=== PATIENT | female | born 1955 | race African-American/Black ===

== ENCOUNTER 2018-12-25 14:37 | Emergency (ER) | payer BC, MEDICARE ==
[~2018-12-25] VITALS: Ht 157.5 cm; Wt 76.0 kg
[~2018-12-25 14:37] MED LIST: ALBU6.7H INH; CLAR10 PO; MOME13HF2 INH; OMEP40CA34 PO; P20 PO
[2018-12-25] MEDS ORDERED: IPRATROPIUM BROMIDE (0.02%) 0.5MG/2.5ML NEB HHN STA (16:05)
[2018-12-25] MEDS ORDERED: METHYLPREDNISOLONE SOD SUCC 125 MG/2 ML VIAL IV STA (16:05)
[2018-12-25] MEDS ORDERED: ALBUTEROL (0.083%) 2.5MG/3ML NEB HHN STA (16:05)
[2018-12-25 16:38] LABS: CHLORIDE 110 mEq/L (98-107)
[2018-12-25 16:49] LABS: BASOPHILS % 1.4 % (0.0-2.0); EOSINOPHILS % 1.4 % (0.0-5.0); HEMATOCRIT. 44.5 % (36.0-48.0); HEMOGLOBIN. 15.2 g/dL (12.0-16.0); LYMPHOCYTES % 21.7 % (20.0-50.0); MEAN CORPUSCULAR HEMOGLOBIN 30.4 pg (28.0-32.0); MEAN CORPUSCULAR VOLUME 89.3 fL (81.0-99.0); MONOCYTES % 8.9 % (2.0-8.0); NEUTROPHILS % 66.6 % (40.0-76.0); PLATELET 340 x1000/uL (130-400); RED BLOOD CELL COUNT 4.98 mill/uL (4.2-5.4); RED CELL DISTRIBUTION WIDTH 14.3 % (11.6-14.6)
[2018-12-25 21:43] VITALS: BP 116/71
== END 2018-12-25 21:44 | disposition home or self-care (01) ==
LOC: ER 14:37
DX: J44.1 Chronic obstructive pulmonary disease with (acute) exacerbation (principal); Z87.891 Personal history of nicotine dependence; Z98.51 Tubal ligation status; Z90.10 Acquired absence of unspecified breast and nipple; Z96.659 Presence of unspecified artificial knee joint; Z88.8 Allergy status to other drugs, medicaments and biological substances; Z91.041 Radiographic dye allergy status
CPT/HCPCS: 36415; 71045; 78582; 80053; 83880; 84484; 85025; 85379; 93005; 94640; 96374; 99284; A9540; A9558; J2930; J7611

== ENCOUNTER 2019-03-20 14:03 | Emergency (ER) | payer MEDICARE ==
[~2019-03-20] VITALS: Ht 157.5 cm; Wt 78.0 kg
[2019-03-20 14:54] VITALS: BP 133/69
[2019-03-20] MEDS ORDERED: ALBUTEROL (0.083%) 2.5MG/3ML NEB HHN STA (18:26)
[2019-03-20] MEDS ORDERED: IPRATROPIUM BROMIDE (0.02%) 0.5MG/2.5ML NEB HHN STA (18:26)
[2019-03-20] MEDS ORDERED: METHYLPREDNISOLONE SOD SUCC 125 MG/2 ML VIAL IM NR (19:07)
== END 2019-03-20 20:16 | disposition home or self-care (01) ==
LOC: ER 14:03
DX: J44.1 Chronic obstructive pulmonary disease with (acute) exacerbation (principal); J20.9 Acute bronchitis, unspecified; J44.0 Chronic obstructive pulmonary disease with (acute) lower respiratory infection; Z91.041 Radiographic dye allergy status; Z90.10 Acquired absence of unspecified breast and nipple; Z98.51 Tubal ligation status
CPT/HCPCS: 71045; 94640; 96372; 99283; J2930; J7611

== ENCOUNTER 2022-08-22 16:54 | Emergency (ER) | payer MEDICARE, OTHER ==
[~2022-08-22] VITALS: Ht 157.5 cm; Wt 77.1 kg
[~2022-08-22 16:54] MED LIST changes: -ALBU6.7H INH; +ALBU6.7H15 INH; +MOME13HF12 INH; -MOME13HF2 INH; +OMEP40CA20 PO; -OMEP40CA34 PO
[2022-08-22 17:10] VITALS: BP 129/70
== END 2022-08-22 19:30 | disposition left against medical advice (07) ==
LOC: ER 16:54
DX: R51.9 Headache, unspecified (principal); R00.2 Palpitations
CPT/HCPCS: 99281

== ENCOUNTER 2023-05-13 23:23 | Emergency (ER) | payer OTHER ==
[~2023-05-13] VITALS: Ht 157.5 cm; Wt 77.0 kg
[2023-05-13 23:36] VITALS: O2SAT 99
[2023-05-14 02:57] VITALS: BP 123/89; PULSE 74; RESP 18; TEMP 98.1
== END 2023-05-14 02:58 | disposition home or self-care (01) ==
LOC: ER 23:23
DX: R42 Dizziness and giddiness (principal); R51.9 Headache, unspecified; J45.909 Unspecified asthma, uncomplicated; K21.9 Gastro-esophageal reflux disease without esophagitis; Z98.51 Tubal ligation status; Z79.899 Other long term (current) drug therapy
CPT/HCPCS: 99284

== ENCOUNTER 2023-12-01 08:57 | Emergency (ER) | payer OTHER ==
[~2023-12-01] VITALS: Ht 157.5 cm; Wt 77.1 kg
[2023-12-01 09:03] VITALS: O2SAT 100
[2023-12-01 09:31] LABS: BASOPHILS % 0.9 % (0.0-2.0); HEMATOCRIT. 39.4 % (36.0-48.0); HEMOGLOBIN. 13.2 g/dL (12.0-16.0); LYMPHOCYTES % 23.4 % (20.0-50.0); MEAN CORPUSCULAR HEMOGLOBIN 30.6 pg (28.0-32.0); MEAN CORPUSCULAR HGB CONC 33.6 g/dL (31.0-37.0); MEAN CORPUSCULAR VOLUME 91.2 fL (81.0-99.0); MONOCYTES % 9.3 % (2.0-8.0); NEUTROPHILS % 65.4 % (40.0-76.0); PLATELET 298 x1000/uL (130-400); RED BLOOD CELL COUNT 4.32 mill/uL (4.2-5.4); WHITE BLOOD COUNT 10.4 x1000/uL (4.5-11.0)
[2023-12-01 09:51] LABS: CARBON DIOXIDE 19 mEq/L (21-32); CHLORIDE 108 mEq/L (98-107); POTASSIUM 3.2 mEq/L (3.5-5.1); SODIUM 140 mEq/L (136-145)
[2023-12-01 09:52] LABS: CALCIUM 10.1 mg/dL (8.7-10.4)
[2023-12-01 09:57] LABS: CREATININE 0.8 mg/dL (0.6-1.0); GLUCOSE 87 mg/dL (70-105); UREA NITROGEN BLOOD 11 mg/dL (9-23)
[2023-12-01] MEDS: PREDNISONE 20MG TABLET PO ONE (10:03)
[2023-12-01] MEDS: ACETAMINOPHEN 325MG TABLET PO ONE (10:03)
[2023-12-01 10:14] VITALS: PULSE 83; RESP 18; O2SAT 97
[2023-12-01] MEDS: IPRATROPIUM/ALBUTEROL 0.5-3(2.5)MG/3ML NEB HHN ONE (10:14)
[2023-12-01] MEDS ORDERED: DEXT30SU17 MT (11:24)
[2023-12-01] MEDS ORDERED: P50 MT (11:24)
[2023-12-01] MEDS ORDERED: IBUP-1523 MT (11:24)
[2023-12-01] MEDS ORDERED: TOPUD MT (11:24)
[2023-12-01 11:36] VITALS: BP 138/79; PULSE 8; RESP 18; TEMP 37.05852; O2SAT 97
== END 2023-12-01 13:48 | disposition home or self-care (01) ==
LOC: ER 08:57
DX: R05.9 Cough, unspecified (principal); R06.2 Wheezing; Z98.890 Other specified postprocedural states; Z88.5 Allergy status to narcotic agent; Z79.899 Other long term (current) drug therapy
CPT/HCPCS: 99284; 71045; 80048; 85025; 36415; 94640; J7512